=== PATIENT | male | born 1965 | race African-American/Black ===

== ENCOUNTER 2017-02-05 13:14 | Emergency (ER) | payer BC, OTHER ==
[2017-02-05 13:22] VITALS: BP 147/92; PULSE 90; TEMP 98.6; BMI 33.0
--- NOTE | 2017-02-05 13:58 | PDOC ---
History of Present Illness - General Chief Complaint: Cold Symptoms Stated Complaint: CONGESTED Time Seen by Provider: 02/05/17 13:45 History Source: Patient Exam Limitations: No Limitations - History of Present Illness Initial Comments: 02/05/17 13:51 Patient is a 51-year-old male, history of high blood pressure and diabetes. Patient presents with cough, green sputum " Feeling of phlegm in chest". No fever, no dyspnea, no hemoptysis. Past Medical History: Denies. Allergies: No known allergies Medications: Family History: Non-contributory Social History: Denies smoking, alcohol use, or IVDU Review of Systems GENERAL/CONSTITUTIONAL: No fever or chills. No weakness. No weight change. HEAD, EYES, EARS, NOSE AND THROAT: No change in vision. No ear pain or discharge. No sore throat. CARDIOVASCULAR: No chest pain or shortness of breath. RESPIRATORY: No cough, wheezing, or hemoptysis. GASTROINTESTINAL: No nausea, vomiting, diarrhea or constipation. No rectal bleeding. GENITOURINARY: No dysuria, frequency, or change in urination. MUSCULOSKELETAL: No joint or muscle swelling or pain. No neck or back pain. SKIN AND BREASTS: No rash or easy bruising. NEUROLOGIC: No headache, vertigo, loss of consciousness, or loss of sensation. ENDOCRINE: No increased thirst. No abnormal weight change. HEMATOLOGIC/LYMPHATIC: No anemia, easy bleeding, or history of blood clots. ALLERGIC/IMMUNOLOGIC: No hives or skin allergy. No latex allergy. Physical Exam: GENERAL: The patient is awake, alert, and fully oriented, in no acute distress. EYES: Pupils equal, round and reactive to light, extraocular movements intact, sclera anicteric, conjunctiva clear. ENT: Ears normal, nares patent, oropharynx clear without exudates. Moist mucous membranes. No uvula deviation NECK: Normal range of motion, supple without lymphadenopathy, JVD, or masses. LUNGS: Breath sounds equal, Rhonchi, no rales or wheezing HEART: Regular rate and rhythm, normal S1 and S2 without murmur, rub or gallop. ABDOMEN: Soft, nontender, normoactive bowel sounds. No guarding, no rebound. No masses. No bruising or abrasions MUSCULOSKELETAL: Normal range of motion, no edema. No clubbing or cyanosis. No cords, erythema, or tenderness. No CVA Tenderness with fist. NEUROLOGICAL: Cranial nerves II through XII grossly intact. Normal speech, normal gait. SKIN: Warm, Dry, normal turgor, no rashes or lesions noted. Past History - Past Medical History Allergies/Adverse Reactions: Allergies Allergy/AdvReac Type Severity Reaction Status Date / Time shellfish derived Allergy Rash Verified 02/05/17 13:22 Home Medications: Ambulatory Orders Lisinopril [Prinivil] 10 mg PO ASDIR 01/26/15 Sitagliptin Phos/Metformin HCl [Janumet 50-500 mg Tablet] 1 tab PO BID 08/11/15 Azithromycin [Zithromax 250mg Tablets -] 250 mg PO UTDICT #6 tab 02/05/17 Diabetes: Yes HTN: Yes - Psycho/Social/Smoking Cessation Hx Anxiety: No Suicidal Ideation: No Smoking Status: Yes Smoking History: Current every day smoker Have you smoked in the past 12 months: Yes Number of Cigarettes Smoked Daily: 10 Information on smoking cessation initiated: No Hx Alcohol Use: No Drug/Substance Use Hx: No Substance Use Type: None *Physical Exam - Vital Signs Last Vital Signs Temp Pulse Resp BP Pulse Ox 98.6 F 90 18 147/92 98 02/05/17 13:19 02/05/17 13:19 02/05/17 13:19 02/05/17 13:19 02/05/17 13:19 Medical Decision Making - Medical Decision Making 02/05/17 13:58 A/P: Patient with bronchitis, will DC patient home on azithromycin. Follow up with PMD in 3 days if symptoms persist. I discussed the physical exam findings, ancillary test results and final diagnoses with the patient. I answered all of the patient's questions. The patient was satisfied with the care received and felt comfortable with the discharge plan and treatment plan. The patient will call to arrange follow-up and will return to the Emergency Department with any new, persistent or worsening symptoms. *DC/Admit/Observation/Transfer Diagnosis at time of Disposition: Bronchitis - Discharge Dispostion Disposition: HOME Condition at time of disposition: Good Admit: No - Prescriptions Prescriptions: Azithromycin [Zithromax 250mg Tablets -] 250 mg PO UTDICT #6 tab - Patient Instructions Printed Discharge Instructions: DI for Acute Bronchitis
== END 2017-02-05 14:04 | disposition home or self-care (01) ==
LOC: JERFT 13:14
DX: J40 Bronchitis, not specified as acute or chronic (principal); I10 Essential (primary) hypertension; E11.9 Type 2 diabetes mellitus without complications; Z79.84 Long term (current) use of oral hypoglycemic drugs; F17.210 Nicotine dependence, cigarettes, uncomplicated
CPT/HCPCS: 99281-25

== ENCOUNTER 2017-05-14 07:05 | Emergency (ER) | payer OTHER, BC ==
[2017-05-14 07:12] VITALS: BP 133/78; PULSE 72; TEMP 98.2; BMI 33.4
--- NOTE | 2017-05-14 07:36 | PDOC ---
History of Present Illness - General Chief Complaint: Injury Stated Complaint: FALL, RT ARM AND SHOULDER PAIN (WORK) Time Seen by Provider: 05/14/17 07:32 History Source: Patient - History of Present Illness Occurred: reports: this evening Severity: reports: moderate Upper Extremity Pain Location: right: elbow Method of Injury: reports: fell Past History - Past Medical History Allergies/Adverse Reactions: Allergies Allergy/AdvReac Type Severity Reaction Status Date / Time shellfish derived Allergy Rash Verified 05/14/17 07:12 Home Medications: Ambulatory Orders Lisinopril [Prinivil] 10 mg PO ASDIR 01/26/15 Sitagliptin Phos/Metformin HCl [Janumet 50-500 mg Tablet] 1 tab PO BID 08/11/15 Diabetes: Yes HTN: Yes - Suicide/Smoking/Psychosocial Hx Smoking Status: Yes Smoking History: Current every day smoker Have you smoked in the past 12 months: Yes Number of Cigarettes Smoked Daily: 10 Information on smoking cessation initiated: Yes 'Breaking Loose' booklet given: 05/14/17 Hx Alcohol Use: No Drug/Substance Use Hx: No Substance Use Type: None Review of Systems - Review of Systems Musculoskeletal: Yes: Joint Pain, Joint Swelling *Physical Exam - Vital Signs Last Vital Signs Temp Pulse Resp BP Pulse Ox 98.2 F 72 18 133/78 99 05/14/17 07:10 05/14/17 07:10 05/14/17 07:10 05/14/17 07:10 05/14/17 07:10 - Physical Exam General Appearance: Yes: Appropriately Dressed. 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 Complaining of pain mostly to right elbow. Has not taken anything for pain. Denies head injury or LOC. No other injuries at this time. See exam M/l elbow sprain -declines pain meds in ED -XR 05/14/17 08:14 Possible chip fracture vs chronic deformity to olecranon as per review with the ED attending. Patient informed. Dc w/ sling for comfort and to take Motrin [id number] for pain as needed. Ortho f/u given 05/14/17 08:19 *DC/Admit/Observation/Transfer Diagnosis at time of Disposition: Elbow injury Qualifiers: Encounter type: initial encounter Laterality: right Qualified Code(s): S59.901A - Unspecified injury of right elbow, initial encounter - Discharge Dispostion Disposition: HOME Condition at time of disposition: Good - Referrals Referrals: Kris Caldwell [Primary Care Provider] - Jeff Winslow MD [Staff Physician] - - Patient Instructions Additional Instructions: Your x-ray revealed that there is a good possibility that you might have a small chip fracture to your elbow. If this is the case, this will heal on its own in time. Use sling as given to you for comfort and take 600-800 mg Motrin [id number] as needed for pain. Please follow-up with orthopedic in 2 weeks - Post Discharge Activity Forms/Work/School Notes: Back to Work
== END 2017-05-14 08:55 | disposition home or self-care (01) ==
LOC: JER 07:05
DX: S59.801A Other specified injuries of right elbow, initial encounter (principal); I10 Essential (primary) hypertension; E11.9 Type 2 diabetes mellitus without complications; Z79.84 Long term (current) use of oral hypoglycemic drugs; F17.210 Nicotine dependence, cigarettes, uncomplicated; V64 Occupant of heavy transport vehicle injured in collision with heavy transport vehicle or bus; Y92.488 Other paved roadways as the place of occurrence of the external cause; Y99.0 Civilian activity done for income or pay; Y93.H9 Activity, other involving exterior property and land maintenance, building and construction
CPT/HCPCS: 73070-TC-RT; 99283-25

== ENCOUNTER 2018-04-09 16:26 | Emergency (ER) | payer OTHER, BC ==
[2018-04-09 16:33] VITALS: BP 150/89; PULSE 70; TEMP 98; BMI 32.6
--- NOTE | 2018-04-09 16:33 | PDOC ---
Rapid Medical Evaluation Time Seen by Provider: 04/09/18 16:31 Medical Evaluation: Allergies Allergy/AdvReac Type Severity Reaction Status Date / Time shellfish derived Allergy Rash Verified 05/14/17 07:12 04/09/18 16:31 I have performed a brief in-person evaluation of this patient. The patient presents with a chief complaint of: L hand swelling/itching 2/2 bee sting at work today Pertinent physical exam findings:minimal swelling/erythema over L 2nd MCP J I have ordered the following:nothing The patient will proceed to the ED for further evaluation. Discharge Disposition - Diagnosis Bee sting Qualifiers: Encounter type: initial encounter Injury intent: accidental or unintentional Qualified Code(s): T63.441A - Toxic effect of venom of bees, accidental ( unintentional), initial encounter - Referrals - Patient Instructions - Post Discharge Activity
[2018-04-09] MEDS ORDERED: diphenhydrAMINE HCL 25 MG CAPSULE (FP) PO ONE ×2 (16:46→16:47)
--- NOTE | 2018-04-09 16:48 | PDOC ---
History of Present Illness - General Chief Complaint: Bite Stated Complaint: BEE STING Time Seen by Provider: 04/09/18 16:31 - History of Present Illness Initial Comments: 53-year-old male with a past medical history significant for hypertension and diabetes presents for evaluation of a bee sting which occurred prior to arrival on his left hand. He has no associated symptoms besides localized swelling. 04/09/18 16:46 Past History - Past Medical History Allergies/Adverse Reactions: Allergies Allergy/AdvReac Type Severity Reaction Status Date / Time shellfish derived Allergy Rash Verified 04/09/18 16:44 Home Medications: Ambulatory Orders Lisinopril [Prinivil] 10 mg PO ASDIR 01/26/15 Sitagliptin Phos/Metformin HCl [Janumet 50-500 mg Tablet] 1 tab PO BID 08/11/15 COPD: No Diabetes: Yes HTN: Yes - Suicide/Smoking/Psychosocial Hx Smoking Status: Yes Smoking History: Never smoked Have you smoked in the past 12 months: Yes Number of Cigarettes Smoked Daily: 10 'Breaking Loose' booklet given: 05/14/17 Hx Alcohol Use: No Drug/Substance Use Hx: No Substance Use Type: None Review of Systems - Review of Systems Integumentary: Yes: See HPI *Physical Exam - Vital Signs Last Vital Signs Temp Pulse Resp BP Pulse Ox 98.0 F 70 18 150/89 98 04/09/18 16:31 04/09/18 16:31 04/09/18 16:31 04/09/18 16:31 04/09/18 16:31 - Physical Exam Comments: HEAD: NC/AT EYES: Conjuntiva clear Ears: Canals and TM's normal NOSE: No d/c THROAT: Moist mucous membrances, oral pharanx clear, uvula midline NECK: Supple without adenopathy CARDIAC: S1 S2 LUNGS: CTA Full and Equal breath sounds ABDOMEN: Soft NT ND MS: Full ROM in all joints without edema NEUROLOGIC: No gross sensory or motor deficits, NVID SKIN: Normal color and temperature no lesions or rashes Left hand skin color and temperature are normal. There is mild swelling about the dorsum of the left hand between the thumb and the second finger. There is no visible stinger or puncture wound. There are no gross sensorimotor deficits 04/09/18 16:47 Medical Decision Making - Medical Decision Making Localized reaction to a bee sting in a patient who is not ALLERGIC. He's gotten stung and in the past without adverse reaction. I will treat him with Benadryl and follow-up with PCP if needed 04/09/18 16:47 *DC/Admit/Observation/Transfer Diagnosis at time of Disposition: Bee sting Qualifiers: Encounter type: initial encounter Injury intent: accidental or unintentional Qualified Code(s): T63.441A - Toxic effect of venom of bees, accidental ( unintentional), initial encounter - Discharge Dispostion Disposition: HOME Condition at time of disposition: Stable Decision to Admit order: No - Referrals Referrals: Lisette Moore [Primary Care Provider] - - Patient Instructions Printed Discharge Instructions: DI for Insect Bites and Stings Additional Instructions: Return to the emergency room should you experience any shortness of breath worse swelling in your mouth. He can expect localized swelling in her hand. He may treated with ice and Benadryl follow-up with your primary care physician in one to 2 days if needed - Post Discharge Activity
== END 2018-04-09 17:07 | disposition home or self-care (01) ==
LOC: JERFT 16:26
DX: T63.441A Toxic effect of venom of bees, accidental (unintentional), initial encounter (principal); W57.XXXA Bitten or stung by nonvenomous insect and other nonvenomous arthropods, initial encounter; Y93.89 Activity, other specified; Y92.89 Other specified places as the place of occurrence of the external cause; E11.9 Type 2 diabetes mellitus without complications; I10 Essential (primary) hypertension
CPT/HCPCS: 99281-25

== ENCOUNTER 2018-04-09 21:22 | Emergency (ER) | payer OTHER, BC ==
[2018-04-09 21:26] VITALS: BP 146/84; PULSE 74; TEMP 98.6; BMI 32.6
[2018-04-09] MEDS ORDERED: DEXAMETHASONE LIQUID 0.5 MG/5 ML 240 ML BULK BOTTLE PO ONE (22:16)
[2018-04-09] MEDS ORDERED: DEXAMETHASONE SOD PHOSPHATE 10 MG/1 ML VIAL ONE (22:18)
--- NOTE | 2018-04-09 22:22 | PDOC ---
History of Present Illness - General Chief Complaint: Edema Stated Complaint: EDEMA Time Seen by Provider: 04/09/18 21:23 - History of Present Illness Initial Comments: 53-year-old male presents for reevaluation of the left arm bee sting. He was stung in the left hand earlier today seen and evaluated in the emergency room given Benadryl however he returns today with increased swelling. The swelling is now tracked up his forearm. 04/09/18 22:17 Past History - Past Medical History Allergies/Adverse Reactions: Allergies Allergy/AdvReac Type Severity Reaction Status Date / Time shellfish derived Allergy Rash Verified 04/09/18 21:26 Home Medications: Ambulatory Orders Lisinopril [Prinivil] 10 mg PO ASDIR 01/26/15 Sitagliptin Phos/Metformin HCl [Janumet 50-500 mg Tablet] 1 tab PO BID 08/11/15 EPINEPHrine (EPI-PEN 0.3MG) [Epipen 0.3MG -] 0.3 mg IM ASDIR #2 pens 04/09/18 COPD: No Diabetes: Yes HTN: Yes - Suicide/Smoking/Psychosocial Hx Smoking Status: Yes Smoking History: Never smoked Have you smoked in the past 12 months: Yes Number of Cigarettes Smoked Daily: 10 Information on smoking cessation initiated: No 'Breaking Loose' booklet given: 05/14/17 Hx Alcohol Use: No Drug/Substance Use Hx: No Substance Use Type: None Review of Systems - Review of Systems Integumentary: Yes: See HPI All Other Systems: Reviewed and Negative *Physical Exam - Vital Signs Last Vital Signs Temp Pulse Resp BP Pulse Ox 98.6 F 74 18 146/84 100 04/09/18 21:23 04/09/18 21:23 04/09/18 21:23 04/09/18 21:23 04/09/18 21:23 - Physical Exam Comments: Left forearm skin color is normal. There is mild warmth over the dorsum of the forearm and dorsum of the hand. The swelling has tract about chcf up the forearm there is no exquisite tenderness, there is no subcutaneous emphysema there are no lymph nodes palpable in the entire extremity including the axilla there is no pain with passive motion of the elbow wrist forearm or hand. There are no gross sensorimotor deficits. 04/09/18 22:18 Medical Decision Making - Medical Decision Making I have examined the patient, I have also had one of our emergency room attendings examined the patient as well the agreement was to discharge him home after a dose of Decadron with a prescription for an EpiPen should he require one. Instructions on the use of the EpiPen were given. Instructions to return to the emergency room should swelling increase or also given. Instructions for Benadryl given as well 04/09/18 22:19 *DC/Admit/Observation/Transfer Diagnosis at time of Disposition: Allergic reaction to bee sting - Discharge Dispostion Disposition: HOME Condition at time of disposition: Stable Decision to Admit order: No - Referrals Referrals: Lisette Moore [Primary Care Provider] - - Patient Instructions Printed Discharge Instructions: How to Care for an Insect Bite or Sting, Insect Allergy, Insect Bites and Stings (Alternative Therapy), DI for Insect Allergy, DI for Insect Bites and Stings Additional Instructions: Return to the emergency room should swelling increased. He will given a dose of the steroid in the emergency room this evening which should last you for the next few days. Continue with Benadryl. No that this medication will make you sleepy and he should not drive. I've also given you a prescription for an EpiPen. Please use the EpiPen as directed. Only use the EpiPen if you have trouble breathing, tongue or facial swelling. When he uses the EpiPen it's important to inject her thigh and hold the pen interior thigh for 30 seconds do not remove the vernon or the needle for 30 seconds to allow the medication to go and. Only give yourself itself one dose of epinephrine should she require it after you do so come directly to the emergency room by ambulance - Post Discharge Activity
== END 2018-04-09 22:45 | disposition home or self-care (01) ==
LOC: JERFT 21:22
DX: Z91.030 Bee allergy status (principal); I10 Essential (primary) hypertension
CPT/HCPCS: 99281-25

== ENCOUNTER 2019-02-05 20:44 | Emergency (ER) | payer OTHER, BC ==
[2019-02-05 20:51] VITALS: BP 160/94; PULSE 72; TEMP 98.6; BMI 32.6
--- NOTE | 2019-02-05 20:51 | PDOC ---
Rapid Medical Evaluation Chief Complaint: Wound Time Seen by Provider: 02/05/19 20:47 Medical Evaluation: Allergies Allergy/AdvReac Type Severity Reaction Status Date / Time shellfish derived Allergy Rash Verified 04/09/18 21:26 02/05/19 20:48 I have performed a brief in-person evaluation of this patient. The patient presents with a chief complaint of: left forearm pain from fall landing on pole Pertinent physical exam findings: swelling and pain to forearm / strong grasp I have ordered the following: Xray Left forearm The patient will proceed to the ED for further evaluation. 02/05/19 20:51 Discharge Disposition - Diagnosis Left forearm pain - Referrals - Patient Instructions - Post Discharge Activity
--- NOTE | 2019-02-05 21:13 | PDOC ---
History of Present Illness - General Chief Complaint: Wound Stated Complaint: RIGHT ARM SWOLLEN Time Seen by Provider: 02/05/19 20:47 - History of Present Illness Initial Comments: 02/05/19 22:06 Chief complaint: Arm injury Patient 53-year-old male with a history of diabetes, hypertension and arthritis , on methotrexate states he was at work today, fell hitting his left forearm. Patient has pain. Denies any injuries other than this and has no wounds. Patient did not take pain medicine. GENERAL/CONSTITUTIONAL: No fever, weakness. dizziness HEAD, EYES, EARS, NOSE AND THROAT: No change in vision. No ear pain or discharge. No sore throat. CARDIOVASCULAR: No chest pain RESPIRATORY: No shortness of breath or cough GASTROINTESTINAL: No pain, nausea, vomiting, diarrhea or constipation GENITOURINARY: No dysuria MUSCULOSKELETAL: No neck or back pain, +arm injuyr SKIN: No rash NEUROLOGIC: No headache, vertigo, loss of consciousness, or loss of sensation. GENERAL: The patient is awake, alert, and fully oriented, in no acute distress. HEAD: Normal with no signs of trauma. EYES: Pupils equal, round and reactive to light, sclera anicteric, conjunctiva clear. ENT: pharynx: no erythema, no exudate, uvula midline NECK: supple CHEST: clear, nontender, rr ABD: soft, nontender BACK: no tenderness or signs of injury EXTREMITIES: Upper extremity with mild tenderness to mid forearm, minimal swelling, no signs of infection, no open wounds, no deformity. Neurovascular intact. Rest of extremities, normal range of motion, no edema. NEUROLOGICAL: Normal speech, normal gait. SKIN: Warm, Dry Past History - Past Medical History Allergies/Adverse Reactions: Allergies Allergy/AdvReac Type Severity Reaction Status Date / Time shellfish derived Allergy Rash Verified 02/05/19 20:51 Home Medications: Ambulatory Orders Lisinopril [Prinivil] 10 mg PO ASDIR 01/26/15 Sitagliptin Phos/Metformin HCl [Janumet 50-500 mg Tablet] 1 tab PO BID 08/11/15 EPINEPHrine (EPI-PEN 0.3MG) [Epipen 0.3MG -] 0.3 mg IM ASDIR #2 pens 04/09/18 COPD: No Diabetes: Yes HTN: Yes - Suicide/Smoking/Psychosocial Hx Smoking Status: Yes Smoking History: Current every day smoker Have you smoked in the past 12 months: Yes Number of Cigarettes Smoked Daily: 20 Information on smoking cessation initiated: No 'Breaking Loose' booklet given: 05/14/17 Hx Alcohol Use: No Drug/Substance Use Hx: No Substance Use Type: None *Physical Exam - Vital Signs Last Vital Signs Temp Pulse Resp BP Pulse Ox 98.6 F 72 16 160/94 100 02/05/19 20:49 02/05/19 20:49 02/05/19 20:49 02/05/19 20:49 02/05/19 20:49 Medical Decision Making - Medical Decision Making 02/05/19 22:08 53-year-old male with isolated injury to left forearm after a fall, no deformity , signs of infection, wounds. Patient was ordered an x-ray from triage. He shouldn't offer pain medicine, will take Tylenol since on methotrexate. Review of x-ray shows no fracture or acute findings. Discussed with patient, will wrapped in Kenneth, patient will take Tylenol and follow-up with orthopedist if not improved by Saturday Discussed issues, findings, results, applicable medications and treatments and follow-up. All these were understood and all questions were answered *DC/Admit/Observation/Transfer Diagnosis at time of Disposition: Arm injury Qualifiers: Encounter type: initial encounter Laterality: left Qualified Code(s): S49.92XA - Unspecified injury of left shoulder and upper arm, initial encounter - Discharge Dispostion Disposition: HOME Condition at time of disposition: Stable Decision to Admit order: No - Referrals Referrals: Kris Caldwell [Primary Care Provider] - Aramis Mae MD [Staff Physician] - - Patient Instructions Additional Instructions: Elevate, wear kenneth bandage You can apply ice for 20 minutes every 2 hours for the next 2 days tylenol 650 mg every 4 hours for pain. Call the orthopedist if not resolved by Saturday - Post Discharge Activity
[2019-02-05] MEDS ORDERED: ACETAMINOPHEN 325 MG TABLET (FP) PO ONE (21:20)
[2019-02-05] MEDS ORDERED: ACETAMINOPHEN 325 MG TABLET (FP) ONE (21:29)
== END 2019-02-05 21:31 | disposition home or self-care (01) ==
LOC: JERFT 20:44
DX: S59.812A Other specified injuries left forearm, initial encounter (principal); S49.82XA Other specified injuries of left shoulder and upper arm, initial encounter; W01.198A Fall on same level from slipping, tripping and stumbling with subsequent striking against other object, initial encounter; Y93.89 Activity, other specified; Y92.89 Other specified places as the place of occurrence of the external cause; Y99.0 Civilian activity done for income or pay
CPT/HCPCS: 73090-TC-LT-FY; 99281-25

== ENCOUNTER 2019-02-11 08:23 | Emergency (ER) | payer BC, OTHER ==
[2019-02-11 08:28] VITALS: BP 148/90; PULSE 76; TEMP 98.6; BMI 29.6
--- NOTE | 2019-02-11 08:49 | PDOC ---
History of Present Illness - General Chief Complaint: Bite Stated Complaint: BEE BITE Time Seen by Provider: 02/11/19 08:26 History Source: Patient - History of Present Illness Timing/Duration: reports: this morning Past History - Past Medical History Allergies/Adverse Reactions: Allergies Allergy/AdvReac Type Severity Reaction Status Date / Time shellfish derived Allergy Rash Verified 02/11/19 08:28 Home Medications: Ambulatory Orders Lisinopril [Prinivil] 10 mg PO ASDIR 01/26/15 Sitagliptin Phos/Metformin HCl [Janumet 50-500 mg Tablet] 1 tab PO BID 08/11/15 EPINEPHrine (EPI-PEN 0.3MG) [Epipen 0.3MG -] 0.3 mg IM ASDIR #2 pens 04/09/18 COPD: No Diabetes: Yes HTN: Yes - Suicide/Smoking/Psychosocial Hx Smoking Status: Yes Smoking History: Never smoked Have you smoked in the past 12 months: Yes Number of Cigarettes Smoked Daily: 20 Information on smoking cessation initiated: No 'Breaking Loose' booklet given: 05/14/17 Hx Alcohol Use: No Drug/Substance Use Hx: No Substance Use Type: None Review of Systems - Review of Systems Respiratory: No: Shortness of Breath, Stridor Integumentary: Yes: Pruritus, Rash *Physical Exam - Vital Signs Last Vital Signs Temp Pulse Resp BP Pulse Ox 98.6 F 76 19 148/90 100 02/11/19 08:27 02/11/19 08:27 02/11/19 08:27 02/11/19 08:27 02/11/19 08:27 - Physical Exam Comments: 02/11/19 08:52 Pt sitting on stretcher and playing a game on his phone General Appearance: Yes: Appropriately Dressed. No: Apparent Distress HEENT: positive: Normal Voice, Other (no e/o angioedema) Neck: positive: Supple Respiratory/Chest: positive: Lungs Clear, Normal Breath Sounds. negative: Respiratory Distress, Stridor Cardiovascular: positive: Regular Rate, S1, S2 Integumentary: positive: Dry, Warm, Other (single hive to posterior R arm) Neurologic: positive: Fully Oriented, Alert, Normal Mood/Affect Medical Decision Making - Medical Decision Making 02/11/19 08:50 53 yo M, h/o HTN and diabetes, here for evaluation after being stung by a bee this a.m. Patient reports pruritic rash to his R arm. No other symptoms at this time and no history of serious reaction/anaphylaxis to bee sting in the past. see exam Local arxn to bee sting No resp sxs No h/o anaphylaxis to bee sting in past Well matthew and stable w/ hive like lesion to R arm -dc to apply cool pack and take OTC oral antihistamine as needed *DC/Admit/Observation/Transfer Diagnosis at time of Disposition: Allergic reaction to bee sting, Hive - Discharge Dispostion Disposition: HOME Condition at time of disposition: Good - Referrals - Patient Instructions Printed Discharge Instructions: How to Care for an Insect Bite or Sting - Post Discharge Activity
== END 2019-02-11 08:45 | disposition home or self-care (01) ==
LOC: JERFT 08:23
DX: T63.441A Toxic effect of venom of bees, accidental (unintentional), initial encounter (principal); T78.49XA Other allergy, initial encounter; Y92.89 Other specified places as the place of occurrence of the external cause; L50.9 Urticaria, unspecified; I10 Essential (primary) hypertension; E11.9 Type 2 diabetes mellitus without complications; Z87.891 Personal history of nicotine dependence
CPT/HCPCS: 99281-25

== ENCOUNTER 2019-08-04 18:11 | Emergency (ER) | payer OTHER, BC ==
[2019-08-04 19:03] VITALS: BP 163/96; PULSE 80; TEMP 98.3; BMI 32.6
[2019-08-04] MEDS ORDERED: KETOROLAC TROMETHAMINE 60 MG/2 ML VIAL IM ONE (19:44)
[2019-08-04] MEDS ORDERED: NAPROXEN 500 MG TABLET (FP) PO ONE (19:52)
[2019-08-04] MEDS ORDERED: NAPROXEN 500 MG TABLET (FP) ONE (20:07)
--- NOTE | 2019-08-04 20:21 | PDOC ---
Documentation entered by Debra Vargas SCRIBE, acting as scribe for Carmen Paul MD. Carmen Paul MD: This documentation has been prepared by the Sam ruiz Brenda, SCRIBE, under my direction and personally reviewed by me in its entirety. I confirm that the documentation accurately reflects all work , treatment, procedures, and medical decision making performed by me. History of Present Illness - General Chief Complaint: Injury Stated Complaint: SHOULDER INJURY History Source: Patient Exam Limitations: No Limitations - History of Present Illness Initial Comments: 08/04/19 19:53 The patient is a 54 year old male, with a significant PMH of DM, HTN and rotator cuff tear who presents to the emergency department with left deltoid weakness and pain. 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 Patient reports that the pain has been constantly at a 10/ 10 in severity since yesterday. He also endorses inability to abduct left arm due to pain, along with lifting both anteriorly and posteriorly. The patient denies chest pain, shortness of breath, headache and dizziness. Denies fever, chills, nausea, vomiting, diarrhea and constipation. Denies any other symptoms. Allergies: NKA Social history: No reported hx of to+bacco use, alcohol use or illicit drug use. PCP: Kris Caldwell 08/04/19 20:18 Assessment and plan: This is a 54-year-old male who injured his left shoulder picking up a heavy concrete block at work. Patient has pain in the deltoid the rotator cuff and the AC joint. X-rays were done and no acute pathology however patient's pain is most likely secondary to a muscle or rotator cuff tear. Patient put in a sling Patient given naproxen 500 mg a prescription for naproxen was sent to the patient's pharmacy and he was referred to Dr. Noonan for further management Past History - Past Medical History Allergies/Adverse Reactions: Allergies Allergy/AdvReac Type Severity Reaction Status Date / Time shellfish derived Allergy Rash Verified 02/11/19 08:28 Home Medications: Ambulatory Orders Lisinopril [Prinivil] 10 mg PO DAILY 01/26/15 Sitagliptin Phos/Metformin HCl [Janumet 50-500 mg Tablet] 1 tab PO BID 08/11/15 EPINEPHrine (EPI-PEN 0.3MG) [Epipen 0.3MG -] 0.3 mg IM ASDIR PRN 08/04/19 Methotrexate [Mexate -] 20 mg PO Q7D 08/04/19 Naproxen [Naprosyn -] 500 mg PO BID #28 tablet 08/04/19 COPD: No Diabetes: Yes HTN: Yes - Psycho Social/Smoking Cessation Hx Smoking Status: Yes Smoking History: Never smoked Have you smoked in the past 12 months: Yes Number of Cigarettes Smoked Daily: 20 'Breaking Loose' booklet given: 05/14/17 Hx Alcohol Use: No Drug/Substance Use Hx: No Substance Use Type: None Review of Systems - Review of Systems Able to Perform ROS?: Yes Comments:: 08/04/19 19:54 General: No fevers or chills, no weakness, no weight loss HEENT: No change in vision. No sore throat,. No ear pain CardioVascular: No chest pain or shortness of breath Respiratory:No cough, or wheezing. Gastrointestinal: no nausea, vomiting, diarrhea or constipation, No rectal bleeding Genitourinary: No dysuria, hematuria, or frequency Musculoskeletal: (+) Pain on left shoulder. No joint or muscle swelling Neurologic: No headache, vertigo, dizziness or loss of consciousness Psychiatric: nor depression Skin: No rashes or easy bruising Endocrine: no increased thirst or abnormal weight change Allergic: no skin or latex allergy All other systems reviewed and normal *Physical Exam - Vital Signs Last Vital Signs Temp Pulse Resp BP Pulse Ox 98.3 F 80 16 163/96 98 08/04/19 18:17 08/04/19 18:17 08/04/19 18:17 08/04/19 18:17 08/04/19 18:17 - Physical Exam 08/04/19 19:57 GENERAL: The patient is awake, alert, and fully oriented, in no acute distress. HEAD: Normal with no signs of trauma. EYES: Pupils equal, round and reactive to light, extraocular movements intact, sclera anicteric, conjunctiva clear. MUSCULOSKELETAL: (+) diffuse tenderness on palpation of the right shoulder rotator cuff. (+) Possible AC separation. EXTREMITIES: no edema. NEUROLOGICAL: Normal speech, normal gait. PSYCH: Normal mood, normal affect. SKIN: Warm, Dry, normal turgor, no rashes or lesions noted. ED Treatment Course - RADIOLOGY Radiology Studies Ordered: Category Date Time Status SHOULDER-LEFT [RAD] Stat Radiology 08/04/19 19:47 Taken - Medications Given in the ED: ED Medications Discontinued Medications Generic Name Dose Route Start Last Admin Trade Name Sj PRN Reason Stop Dose Admin Ketorolac Tromethamine 60 mg 08/04/19 19:44 08/04/19 20:12 Toradol Injection - IM 08/04/19 19:45 Not Given ONCE ONE Naproxen 500 mg 08/04/19 19:52 08/04/19 20:10 Naprosyn - PO 08/04/19 19:53 500 mg ONCE ONE Administration Discharge - Discharge Information Problems reviewed: Yes Clinical Impression/Diagnosis: Shoulder injury Qualifiers: Encounter type: initial encounter Laterality: left Qualified Code(s): S49.92XA - Unspecified injury of left shoulder and upper arm, initial encounter Condition: Good Disposition: HOME - Admission No - Additional Discharge Information Prescriptions: Naproxen [Naprosyn -] 500 mg PO BID #28 tablet - Follow up/Referral Referrals: Kris Caldwell [Primary Care Provider] - Yoshi Noonan MD [Staff Physician] - - Patient Discharge Instructions Patient Printed Discharge Instructions: How to Use a Sling Additional Instructions: Wear the sling for comfort. Call Dr. Noonan and get an appointment to follow-up as soon as possible. For the pain take naproxen 2 tablets twice a day with food do not take on an empty stomach I sent a prescription to your pharmacy. Return to the emergency department immediately with ANY new, persistent or worsening symptoms. Continue any medications as previously prescribed by your physician. You should follow up with your primary doctor as soon as possible regarding today's emergency department visit. . Please make sure your doctor reviews the results of your emergency evaluation. Thank you for coming to the Emergency Department today for your care. It was a pleasure to see you today. Please note that your evaluation is INCOMPLETE until you follow-up with your doctor. - Post Discharge Activity
== END 2019-08-04 20:26 | disposition home or self-care (01) ==
LOC: FER 18:11
PROC: 3E0233Z Introduction of Anti-inflammatory into Muscle, Percutaneous Approach (ICD-10-PCS; principal; 2019-08-04)
DX: S49.92XA Unspecified injury of left shoulder and upper arm, initial encounter (principal); Z91.013 Allergy to seafood; E11.9 Type 2 diabetes mellitus without complications; I10 Essential (primary) hypertension; F17.210 Nicotine dependence, cigarettes, uncomplicated
CPT/HCPCS: 73030-TC-LT-FY; 99282-25

== ENCOUNTER 2020-12-12 10:00 | Emergency (ER) | payer BC ==
[2020-12-12 10:05] VITALS: BP 156/92; PULSE 62; TEMP 98.6; BMI 31.7
[2020-12-12] MEDS ORDERED: BACITRACIN 0.9 GM PACKET TP ONE (10:23)
== END 2020-12-12 10:35 | disposition home or self-care (01) ==
LOC: FER 10:00
DX: L02.416 Cutaneous abscess of left lower limb (principal)
CPT/HCPCS: 99284-25

== ENCOUNTER 2021-01-30 21:07 | Emergency (ER) | payer BC, OTHER ==
[2021-01-30 21:27] VITALS: BP 150/97; PULSE 90; TEMP 98.9; BMI 30.8
[2021-01-30] MEDS ORDERED: NAPROXEN 500 MG TABLET PO ONE (21:52)
[2021-01-30] MEDS ORDERED: NAPROXEN 500 MG TABLET ONE (22:17)
== END 2021-01-30 22:26 | disposition home or self-care (01) ==
LOC: FER 21:07
DX: M25.552 Pain in left hip (principal)
CPT/HCPCS: 73523-TC-FY; 99283-25

== ENCOUNTER 2021-09-06 20:08 | Emergency (ER) | payer BC, OTHER ==
[2021-09-06 20:37] VITALS: TEMP 99.5; BMI 31.7
[2021-09-06] MEDS ORDERED: ALBUTEROL SO4 2.5/IPRATROPIUM 0.5 INH SOL 3 ML VIAL.NEB. NEB ONE ×2 (21:14→21:20)
[2021-09-06] MEDS ORDERED: AZITHROMYCIN IVPB 500 MG in DEXTROSE 5%-WATER - 250 ML IVPB ONE (21:47)
[2021-09-06] MEDS ORDERED: CEFTRIAXONE 1,000 MG in DEXTROSE 5%-WATER - 50 ML IVPB ONE (21:47)
[2021-09-06] MEDS ORDERED: cefTRIAXone SODIUM 1 GM VIAL ONE (21:51)
[2021-09-06] MEDS ORDERED: AZITHROMYCIN 500 MG VIAL IVPB ONE (21:51)
[2021-09-06 22:15] LABS: ALBUMIN 3.8 g/dl (3.4-5.0); BILIRUBIN,TOTAL 0.9 mg/dl (0.2-1); CALCIUM 9.5 mg/dl (8.5-10); CREATININE 1.4 mg/dl (0.55-1.3); TOT PROT 7.7 g/dl (6.4-8.2)
[2021-09-06 23:44] LABS: BASO % 1.2 % (0-2.0); EOS % 3.3 % (0-4.5); HEMATOCRIT 45.5 % (35.4-49); HEMOGLOBIN 14.9 GM/dL (11.7-16.9); LYMPH % 24.2 % (8-40); MCH 27.1 pg (25.7-33.7); MCHC 32.7 g/dl (32.0-35.9); MEAN CELL VOLUME 82.9 fl (80-96); MEAN PLT VOLUME 9.2 fl (7.5-11.1); MONO % 19.3 % (3.8-10.2); PLATELET COUNT 183 10^3/uL (134-434); RBC 5.49 M/mm3 (4.00-5.60); RDW 13.4 % (11.9-15.9); WHITE BLOOD COUNT 7.5 K/mm3 (4.0-10.0)
[2021-09-06 23:52] VITALS: BP 121/83; PULSE 82
[2021-09-08 12:08] LABS: SARS-CoV-2 NAA Not Detected (Not Detected)
== END 2021-09-07 00:04 | disposition home or self-care (01) ==
LOC: FER 20:08
PROC: 3E0F7GC Introduction of Other Therapeutic Substance into Respiratory Tract, Via Natural or Artificial Opening (ICD-10-PCS; principal; 2021-09-06)
PROC: 3E03329 Introduction of Other Anti-infective into Peripheral Vein, Percutaneous Approach (ICD-10-PCS; 2021-09-06)
PROC: 3E03329 Introduction of Other Anti-infective into Peripheral Vein, Percutaneous Approach (ICD-10-PCS; 2021-09-06)
DX: J18.9 Pneumonia, unspecified organism (principal)
CPT/HCPCS: 36415; 71046-TC-FY; 80053; 85025; 87040; 99284-25; C9803; U0003; U0005

== ENCOUNTER 2021-12-16 09:59 | Emergency (ER) | payer OTHER, BC ==
[2021-12-16 10:13] VITALS: BP 156/91; PULSE 64; TEMP 98.6; BMI 30.8
[2021-12-16] MEDS ORDERED: ACETAMINOPHEN 325 MG TABLET (FP) PO ONE (10:19)
[2021-12-16] MEDS ORDERED: ACETAMINOPHEN 500 MG TABLET (FP) ONE (10:23)
== END 2021-12-16 10:37 | disposition home or self-care (01) ==
LOC: FER 09:59
DX: S29.012A Strain of muscle and tendon of back wall of thorax, initial encounter (principal); V87.7XXA Person injured in collision between other specified motor vehicles (traffic), initial encounter; Y92.9 Unspecified place or not applicable
CPT/HCPCS: 99283-25

== ENCOUNTER 2023-02-02 09:37 | Emergency (ER) | payer BC, OTHER ==
[2023-02-02 09:54] VITALS: BP 145/89; PULSE 86; RESP 18; TEMP 98.7; BMI 29.4
== END 2023-02-02 10:26 | disposition home or self-care (01) ==
LOC: FER 09:37
DX: M79.672 Pain in left foot (principal)
CPT/HCPCS: 87070; 87205; 99283-25

== ENCOUNTER 2023-04-19 16:31 | Emergency (ER) | payer OTHER, BC ==
[2023-04-19 16:48] VITALS: BP 161/60; PULSE 76; RESP 18; TEMP 98.3; BMI 29.7
[2023-04-19] MEDS ORDERED: ACETAMINOPHEN 500 MG TABLET (FP) PO ONE (17:12)
[2023-04-19] MEDS ORDERED: LIDOCAINE 5% TOPICAL PATCH TP ONE (17:13)
[2023-04-19] MEDS ORDERED: LIDOCAINE 5% TOPICAL PATCH ONE (17:19)
[2023-04-19] MEDS ORDERED: ACETAMINOPHEN 325 MG TABLET (FP) ONE (17:19)
[2023-04-19] MEDS ORDERED: LIDOCAINE PATCH REMOVAL MC SCH (22:00)
== END 2023-04-19 18:19 | disposition home or self-care (01) ==
LOC: JERFT 16:31
DX: M25.561 Pain in right knee (principal); V57.1XXA Passenger in pick-up truck or van injured in collision with fixed or stationary object in nontraffic accident, initial encounter; Y99.0 Civilian activity done for income or pay
CPT/HCPCS: 73562-TC-RT-FY; 99283-25

== ENCOUNTER 2023-09-29 06:32 | Emergency (ER) | payer OTHER, BC ==
[2023-09-29 06:41] VITALS: BP 173/91; PULSE 76; RESP 18; TEMP 98.7; BMI 29.7
== END 2023-09-29 07:01 | disposition home or self-care (01) ==
LOC: FER 06:32
DX: M25.561 Pain in right knee (principal); R22.41 Localized swelling, mass and lump, right lower limb; W18.39XA Other fall on same level, initial encounter
CPT/HCPCS: 99282-25

== ENCOUNTER 2023-12-11 23:02 | Emergency (ER) | payer BC ==
[2023-12-11 23:13] VITALS: BP 146/94; PULSE 72; RESP 16; TEMP 98.3; BMI 29.7
== END 2023-12-11 23:20 | disposition home or self-care (01) ==
LOC: FER 23:02
DX: S40.811A Abrasion of right upper arm, initial encounter (principal); W50.4XXA Accidental scratch by another person, initial encounter
CPT/HCPCS: 99282-25

== ENCOUNTER 2024-01-16 14:46 | Emergency (ER) | payer BC ==
[2024-01-16 15:04] VITALS: BP 145/78; PULSE 74; RESP 18; TEMP 97.9; BMI 29.9
[2024-01-16] MEDS: TETRACAINE 0.5% HCL 0.6ML DROPPER.BOTTLE OD ONE (15:22)
[2024-01-16] MEDS ORDERED: FLUORESCEIN NA 1 EA STRIP ONE (15:22)
[2024-01-16] MEDS: FLUORESCEIN NA 1 EA STRIP OD ONE (15:22)
[2024-01-16] MEDS ORDERED: TETRACAINE 0.5% OPHTH SOLN 2 ML BOTTLE ONE (15:22)
[2024-01-16] MEDS ORDERED: ERYTHROMYCIN 0.5% OPHTHALMIC OINTMENT 3.5 GM TUBE ONE (15:41)
[2024-01-16] MEDS: ERYTHROMYCIN 0.5% OPHTHALMIC OINTMENT 3.5 GM TUBE OD ONE (15:41)
== END 2024-01-16 15:51 | disposition home or self-care (01) ==
LOC: JERFT 14:46
DX: S05.02XA Injury of conjunctiva and corneal abrasion without foreign body, left eye, initial encounter (principal); W26.8XXA Contact with other sharp object(s), not elsewhere classified, initial encounter
CPT/HCPCS: 82962; 99283-25

== ENCOUNTER 2024-12-23 23:10 | Emergency (ER) | payer BC ==
[2024-12-23 23:19] VITALS: BP 155/86; PULSE 79; RESP 16; TEMP 98.2; BMI 28.8
[2024-12-23] MEDS ORDERED: ALBUTEROL SO4 HFA INHALER IH ONE (23:27)
[2024-12-23] MEDS: ALBUTEROL SO4 HFA INHALER IH ONE (23:31)
== END 2024-12-23 23:35 | disposition home or self-care (01) ==
LOC: FER 23:10
DX: J40 Bronchitis, not specified as acute or chronic (principal); R09.81 Nasal congestion; R06.2 Wheezing; J34.89 Other specified disorders of nose and nasal sinuses
CPT/HCPCS: 99283-25